=== PATIENT | female | born 1980 | race Caucasian/White ===

== ENCOUNTER 2016-04-19 18:08 | Emergency (ER) | payer MEDICAID ==
[2016-04-19 18:14] VITALS: BMI 27.1
[2016-04-19 18:15] VITALS: TEMP 97.9
[2016-04-19 18:35] LABS: AUTOMATED EOSINOPHIL 1.5 % (0-5); AUTOMATED LYMPH 32.9 % (17-44); AUTOMATED MONOCYTE 9.6 % (3-10); MPV 9.6 fL (7.4-10.4)
[2016-04-19 18:37] LABS: LEUKOCYTES/URINE NEG (NEGATIVE); NITRITE/URINE NEG (NEGATIVE); URINE OCCULT BLOOD NEG (NEG/TRACE)
[2016-04-19 18:44] LABS: BLOOD UREA NITROGEN 9 MG/DL (7-17); CALCIUM 9.2 MG/DL (8.4-10.2); CALCULATED OSMOLALITY 272 MOs/Kg (270-290); CHLORIDE 106 mEq/L (98-107); GLUCOSE 95 MG/DL (70-99); SODIUM LEVEL 142 mEq/L (137-146); TOTAL PROTEIN 7.3 G/DL (6.3-8.2)
[2016-04-19] MEDS ORDERED: ONDANSETRON HCL 4 MG/2 ML VIAL IV ONE (18:50)
[2016-04-19] MEDS ORDERED: NS 1,000 ML IV ONE (18:50)
[2016-04-19] MEDS ORDERED: MORPHINE 4 MG/ML INJECTION IV ONE (18:50)
[2016-04-19] MEDS ORDERED: Pharmacy Review for Metformin - IV Contrast Given SCH (19:00)
--- NOTE | 2016-04-19 20:11 | DIRPT ---
CLINICAL DATA: Right lower quadrant pain EXAM: CT ABDOMEN AND PELVIS WITH CONTRAST TECHNIQUE: Multidetector CT imaging of the abdomen and pelvis was performed using the standard protocol following bolus administration of intravenous contrast. CONTRAST: 80 cc Isovue COMPARISON: 12/31/2015 FINDINGS: Lung bases are unremarkable. Sagittal images of the spine are unremarkable. Again noted status postcholecystectomy. Stable intrahepatic and extrahepatic biliary ductal dilatation. No focal hepatic mass. Enhanced pancreas, spleen and adrenal glands are unremarkable. Abdominal aorta is unremarkable. No aortic aneurysm. No small bowel obstruction. No ascites or free air. No adenopathy. Enhanced kidneys are symmetrical in size. No hydronephrosis or hydroureter. Normal appendix is clearly visualized in axial image 58. No pericecal inflammation. The terminal ileum is unremarkable. The uterus is anteflexed. No adnexal masses noted. Urinary bladder is unremarkable. There is no inguinal adenopathy. No pelvic free fluid. No destructive bony lesions are noted within pelvis. IMPRESSION: 1. No acute inflammatory process within abdomen or pelvis. 2. No pericecal inflammation. Normal appendix. 3. Status postcholecystectomy. Stable biliary ductal dilatation. 4. No small bowel obstruction. 5. Unremarkable uterus. No pelvic mass. Electronically Signed By: Blake Alexander M.D. On: 04/19/2016 20:09
--- NOTE | 2016-04-19 20:19 | EDPRACDOC ---
- General Information Chief Complaint: Abdominal Pain Stated Complaint: ABDOMINAL PAIN Time Seen by Provider: 04/19/16 18:49 Information Source: Patient Mode Of Arrival: Car Home Medications: Home Medications Omeprazole 20 mg PO DAILY 01/17/14 Ondansetron [Zofran Odt] 4 mg PO Q6H PRN #20 tab.rapdis 04/19/16 Oxycodone Immediate Release [Oxycodone Immediate Release (OxyIR)] 5 mg PO Q6H PRN #20 tab 04/19/16 Allergies/Adverse Reactions: Allergies Allergy/AdvReac Type Severity Reaction Status Date / Time amoxicillin [Amoxicillin] Allergy Severe Hives* Verified 04/19/16 18:11 Penicillins Allergy Severe Hives* Verified 04/19/16 18:11 - History of Present Illness Onset: 1130, worsening HPI: PT PRESENTS WITH RLQ PAIN THAT BECAME SEVERE AT 1130 TODAY. PT DENIES NAUSEA, OR VOMITING. DENIES VAGINAL DISCHARGE OR DYSURIA Pain Location: Reports: RLQ Pain Context: Reports: Spontaneous Pain Severity: Moderate Pain Quality: Reports: Sharp, Stabbing Pain Radiation: Reports: No Radiation Last Menstrual Period: 03/26/16 : No (tubal) Adult Abdominal History: Reports: Abdominal Surgery (CHOLECYSTECOTOMY) Female Abdominal History: Denies: Abdominal Surgery, UTI, Ectopic, PID, Urolithiasis, Similar Pain (dx) Modifying Factors: improves with: Nothing Oral Intake: Normal Urinary Output: Normal ED Past Medical History - History Reviewed Yes Nurses notes reviewed and agree except as marked - Patient Medical History Cardiac History: Reports: Hypertension Psychological History: Reports: Depression Surgical History: Reports: Cholecystectomy, Other (D&C x 2) - Social Medical History Smoking Status: Never smoker EDM Review of Systems - Review of Systems ROS Negative Except as Marked: Yes All systems reviewed and were negative except as marked - Physical Exam Constitutional: Alert Oriented to: Time, Person, Place Last recorded Vital Signs: Last Vital Signs Temp 97.9 F 04/19/16 18:13 Pulse 120 H 04/19/16 18:13 Resp 20 04/19/16 18:13 BP 167/109 H 04/19/16 18:13 Pulse Ox 95 04/19/16 18:13 Oxygen Pulse Oxygen Saturation 95 O2 Device Room Air Oxygen Flow Rate Fraction of Inspired Oxygen ( FIO2) - HEENT Head: Normal ( normocephalic) Eye Exam: Normal (PERRL, EOMI, Sclera white) Oropharynx: Normal (Pharynx:Moist without exudate,Gums-no swelling) Nose: No Symptoms Reported (septum midline) Neck: Normal (FROM, trachea at midline) - Respiratory/Cardiovascular Respiratory: Normal - CTA (BBS clear to auscultation without adventitious sounds ) Cardiovascular: Tachycardia - GI Auscultation: Normal (NABS) Palpation: Normal (Soft,No rebound or guarding, non distended) Tenderness: Moderate, RLQ Slater's Sign: Negative Rectal Exam: Deferred - Musculoskeletal Back: Normal (Non-Tender) Extremities: Normal (Normal tone, Pulses 2+ No cyanosis or edema, FROM) - Integumentary Skin: Normal, Warm, Dry Lymphatics: Normal (no adenopathy) - Neurologic Memory Impaired: Normal Motor Function: Normal (Normal tone, Pulses 2+ No cyanosis or edema, FROM) Cranial Nerve: Normal (CN II-X11 intact sensation, strength 5/5) Cerebellar: Normal Mood Description: Normal Perception: Normal - Differential Diagnosis Appendicitis, Constipation, Other - Results 04/19/16 18:18 04/19/16 18:18 WBC 6.8 xk/uL (3.8-10.8) 04/19/16 18:18 RBC 5.30 xM/uL (4.20-5.40) 04/19/16 18:18 Hgb 15.8 g/dL (12.0-16.0) 04/19/16 18:18 Hct 47.4 % (36-47) H 04/19/16 18:18 MCV 89 fL (81-99) 04/19/16 18:18 MCH 29.7 pg (27-32) 04/19/16 18:18 MCHC 33.3 g/dl (33-36) 04/19/16 18:18 RDW 15.8 % (11.5-14.5) H 04/19/16 18:18 Plt Count 266 xk/uL (130-400) 04/19/16 18:18 MPV 9.6 fL (7.4-10.4) 04/19/16 18:18 Neut % (Auto) 55.0 % (45-76) 04/19/16 18:18 Lymph % (Auto) 32.9 % (17-44) 04/19/16 18:18 [place] % (Auto) 9.6 % (3-10) 04/19/16 18:18 Eos % (Auto) 1.5 % (0-5) 04/19/16 18:18 Baso % (Auto) 1.0 % (0-2) 04/19/16 18:18 Absolute Neuts (auto) 3.74 xk/uL (1.7-8.2) 04/19/16 18:18 Absolute Lymphs (auto) 2.18 xk/uL (0.65-4.75) 04/19/16 18:18 Sodium 142 mEq/L (137-146) 04/19/16 18:18 Potassium 3.5 mEq/L (3.5-5.1) 04/19/16 18:18 Chloride 106 mEq/L (98-107) 04/19/16 18:18 Carbon Dioxide 22 mMOL/L (22-33) 04/19/16 18:18 Anion Gap 18 mEq/L (8-16) H 04/19/16 18:18 BUN 9 MG/DL (7-17) 04/19/16 18:18 Creatinine 0.80 MG/DL (0.52-1.04) 04/19/16 18:18 Estimated GFR (MDRD) > 60 mL/min (>=60) 04/19/16 18:18 Glucose 95 MG/DL (70-99) 04/19/16 18:18 Calculated Osmolality 272 MOs/Kg (270-290) 04/19/16 18:18 Lactic Acid 0.8 mEq/L (0.7-2.1) 04/19/16 19:00 Calcium 9.2 MG/DL (8.4-10.2) 04/19/16 18:18 Total Bilirubin 0.4 MG/DL (0.2-1.3) 04/19/16 18:18 AST 32 IU/L (14-36) 04/19/16 18:18 ALT 52 IU/L (9-52) 04/19/16 18:18 Alkaline Phosphatase 74 IU/L (38-126) 04/19/16 18:18 Total Protein 7.3 G/DL (6.3-8.2) 01/03/17 18:18 Albumin 4.1 G/DL (3.5-5.0) 04/19/16 18:18 Urine Color Dark yellow 04/19/16 18:18 Urine Clarity Sl cldy 04/19/16 18:18 Urine pH 6.0 (5.0-8.0) 04/19/16 18:18 Ur Specific [place] 1.030 (1.003-1.035) 04/19/16 18:18 Urine Protein 1+ (NEG/TRACE) H 04/19/16 18:18 Urine Glucose (UA) Neg (NEGATIVE) 04/19/16 18:18 Urine Ketones Neg (NEGATIVE) 04/19/16 18:18 Urine Occult Blood Neg (NEG/TRACE) 04/19/16 18:18 Urine Nitrite Neg (NEGATIVE) 04/19/16 18:18 Urine Bilirubin Neg (NEGATIVE) 04/19/16 18:18 Urine Urobilinogen <2.0 MG/DL (0-1) 04/19/16 18:18 Ur Leukocyte Esterase Neg (NEGATIVE) 04/19/16 18:18 Urine RBC 2-5 (0-5) 04/19/16 18:18 Urine WBC 2-5 (0-5) 04/19/16 18:18 Ur Epithelial Cells 3+ 04/19/16 18:18 Urine Bacteria Few (NEG/FEW) 04/19/16 18:18 Urine Mucus Mod (NEG/OCC) H 04/19/16 18:18 Urine Test Neg (NEGATIVE) 04/19/16 18:18 Lab Results 04/19/16 04/19/16 04/19/16 19:00 18:18 18:18 WBC RBC Hgb Hct MCV MCH MCHC RDW Plt Count MPV Neut % (Auto) Lymph % (Auto) [place] % (Auto) Eos % (Auto) Baso % (Auto) Absolute Neuts (auto) Absolute Lymphs (auto) Sodium Potassium Chloride Carbon Dioxide Anion Gap BUN Creatinine Estimated GFR (MDRD) Glucose Calculated Osmolality Lactic Acid 0.8 Calcium Total Bilirubin AST ALT Alkaline Phosphatase Total Protein Albumin Urine Color Dark yellow Urine Clarity Sl cldy Urine pH 6.0 Ur Specific [place] 1.030 Urine Protein 1+ H Urine Glucose (UA) Neg Urine Ketones Neg Urine Occult Blood Neg Urine Nitrite Neg Urine Bilirubin Neg Urine Urobilinogen <2.0 Ur Leukocyte Esterase Neg Urine RBC 2-5 Urine WBC 2-5 Ur Epithelial Cells 3+ Urine Bacteria Few Urine Mucus Mod H Urine Test Neg 04/19/16 04/19/16 18:18 18:18 WBC 6.8 RBC 5.30 Hgb 15.8 Hct 47.4 H MCV 89 MCH 29.7 MCHC 33.3 RDW 15.8 H Plt Count 266 MPV 9.6 Neut % (Auto) 55.0 Lymph % (Auto) 32.9 [place] % (Auto) 9.6 Eos % (Auto) 1.5 Baso % (Auto) 1.0 Absolute Neuts (auto) 3.74 Absolute Lymphs (auto) 2.18 Sodium 142 Potassium 3.5 Chloride 106 Carbon Dioxide 22 Anion Gap 18 H BUN 9 Creatinine 0.80 Estimated GFR (MDRD) > 60 Glucose 95 Calculated Osmolality 272 Lactic Acid Calcium 9.2 Total Bilirubin 0.4 AST 32 ALT 52 Alkaline Phosphatase 74 Total Protein 7.3 Albumin 4.1 Urine Color Urine Clarity Urine pH Ur Specific [place] Urine Protein Urine Glucose (UA) Urine Ketones Urine Occult Blood Urine Nitrite Urine Bilirubin Urine Urobilinogen Ur Leukocyte Esterase Urine RBC Urine WBC Ur Epithelial Cells Urine Bacteria Urine Mucus Urine Test Decision Time to Discharge: 20:20 - Departure Disposition: Home Condition: Stable Final Diagnosis: Abdominal pain Instructions: Acute Abdominal Pain (ED) Education/Counseling Given To: Patient Education/Counseling Given Regarding: Diagnosis, Treatment, Prognosis, Follow Up Referrals: Dimas Ortiz II, MD [Staff Physician] - One Week Prescriptions: Ondansetron [Zofran Odt] 4 mg PO Q6H PRN #20 tab.rapdis PRN Reason: Nausea/Vomiting Oxycodone Immediate Release [Oxycodone Immediate Release (OxyIR)] 5 mg PO Q6H PRN #20 tab PRN Reason: Pain Additional Instructions: PLEASE MAKE A FOLLOW UP APPOINTMENT WITH PCP FOR NEXT WEEK. RETURN TO THE ED FOR WORSENING SYMPTOMS OR CONCERNS
[2016-04-19 20:22] LABS: ALL NEG? NO
[2016-04-19] MEDS ORDERED: OXYCODONE HCL 5 MG TABLET PO ONE (20:28)
[2016-04-19 20:31] LABS: MDMA* NEG (NEGATIVE); METHAMPHETAMINES NEG (NEGATIVE); OXYCODONE *POSITIVE* (NEGATIVE)
[2016-04-19 20:43] VITALS: BP 140/89; PULSE 103
== END 2016-04-19 20:40 | disposition home or self-care (01) ==
LOC: ED 18:08
DX: R10.9 Unspecified abdominal pain (principal)
CPT/HCPCS: 36415; 74177; 80053; 80307; 81001; 81025; 83605; 85025; 96361; 96374; 96375; 99284; A9698; J2270; J2405; J3490

== ENCOUNTER 2016-05-25 16:50 | Emergency (ER) | payer MEDICAID ==
[2016-05-25 16:57] VITALS: TEMP 97.8; BMI 26.0
[2016-05-25] MEDS ORDERED: DICYCLOMINE 10 MG CAP PO ONE (17:56)
[2016-05-25] MEDS ORDERED: IBUPROFEN 600 MG TAB PO ONE (17:56)
[2016-05-25 18:07] LABS: ALL NEG? NO
[2016-05-25 18:27] LABS: LEUKOCYTES/URINE NEG (NEGATIVE); NITRITE/URINE NEG (NEGATIVE); RBC/URINE 0-2 (0-5); URINE OCCULT BLOOD NEG (NEG/TRACE); WBC/URINE 0-2 (0-5)
[2016-05-25 18:30] LABS: MDMA* NEG (NEGATIVE); METHAMPHETAMINES NEG (NEGATIVE); OXYCODONE *POSITIVE* (NEGATIVE)
--- NOTE | 2016-05-25 18:30 | DIRPT ---
CLINICAL DATA: Abdominal pain, dizziness, vaginal burning. EXAM: ABDOMEN - 2 VIEW COMPARISON: None. FINDINGS: Overall bowel gas pattern is nonobstructive. Several nonspecific air-fluid levels within the right upper quadrant. No evidence of soft tissue mass. No evidence of free intraperitoneal air. Cholecystectomy clips in the right upper quadrant. Osseous structures are unremarkable. Lung bases are clear. IMPRESSION: Nonobstructive bowel gas pattern. Several nonspecific air-fluid levels within the right upper quadrant, of uncertain significance. Electronically Signed By: Alejandro Blackwell M.D. On: 05/25/2016 18:27
--- NOTE | 2016-05-25 18:33 | EDPRACDOC ---
- General Information Chief Complaint: Abdominal Pain Stated Complaint: MULTIPLE COMPLAINTS Time Seen by Provider: 05/25/16 17:05 Mode Of Arrival: Car Home Medications: Home Medications Omeprazole 20 mg PO DAILY 01/17/14 Dicyclomine HCl [Bentyl] 10 mg PO Q6H #28 cap 05/25/16 Meloxicam [Mobic] 7.5 mg PO BID #20 tab 05/25/16 Ondansetron HCl [Zofran] 4 mg PO Q6H PRN #20 tab 05/25/16 Allergies/Adverse Reactions: Allergies Allergy/AdvReac Type Severity Reaction Status Date / Time amoxicillin [Amoxicillin] Allergy Severe Hives* Verified 05/25/16 16:57 Penicillins Allergy Severe Hives* Verified 05/25/16 16:57 - History of Present Illness Onset: 1 DAY HPI: PT PRESENTS TODAY WITH DYSURIA AND RLQ PAIN SINCE EARLIER TODAY. PT ALSO STATES CRAFT, DIZZINESS AND NECK PAIN. PT WAS DIFFICULT TO WAKE UP. DENIES FEVER, VOMITING/DIARRHEA, CP, SHOB, VAGINAL BLEEDING/DISCHARGE. NO APPARENT DISTRESS. PMH OF CHOLECYSTECTOMY AND BTL. Pain Location: Reports: RLQ Pain Context: Reports: Spontaneous Pain Severity: Moderate Pain Quality: Reports: Cramping Pain Radiation: Reports: No Radiation Last Menstrual Period: 05/14/16 : No Control Method: Reports: BTL Adult Abdominal History: Denies: Urolithiasis Female Abdominal History: Denies: UTI, Ectopic, PID, Urolithiasis Female Associated Signs & Symptoms: Reports: Nausea, Other (CRAFT) Oral Intake: Normal Urinary Output: Normal ED Past Medical History - History Reviewed Yes Nurses notes reviewed and agree except as marked - Patient Medical History Cardiac History: Reports: Hypertension ( INDUCED) GI/ History: Denies: Urinary Tract Infection Psychological History: Reports: Depression Surgical History: Reports: Cholecystectomy, Other (D&C x 2) - Social Medical History Smoking Status: Never smoker EDM Review of Systems - Review of Systems ROS Negative Except as Marked: Yes All systems reviewed and were negative except as marked Constitutional: No Symptoms Reported Respiratory: No Symptoms Reported Cardiovascular: No Symptoms Reported Gastrointestinal: Nausea, Pain Genitourinary: Dysuria Neurological: Headache Musculoskeletal: No Symptoms Reported Integumentary: No Symptoms Reported - Physical Exam Constitutional: Alert (Awake), No apparent distress Oriented to: Time, Person, Place Last recorded Vital Signs: Last Vital Signs Temp 97.8 F 05/25/16 16:54 Pulse 86 05/25/16 18:00 Resp 18 05/25/16 18:00 BP 106/59 L 05/25/16 18:00 Pulse Ox 95 05/25/16 18:00 Oxygen Pulse Oxygen Saturation 95 O2 Device Room Air Oxygen Flow Rate Fraction of Inspired Oxygen ( FIO2) - HEENT Head: Normal Eye Exam: Normal Oropharynx: Normal Tympanic Membrane: Normal ENT EAC: Normal Nose: No Symptoms Reported Neck: Normal, Denies Pain, Midline - Respiratory/Cardiovascular Respiratory: Normal - CTA Cardiovascular: Normal - GI Auscultation: Normal Palpation: Normal Tenderness: Moderate, RLQ Slater's Sign: Negative - Musculoskeletal Back: Normal Extremities: Normal - Integumentary Skin: Normal Lymphatics: Normal - Neurologic Cerebellar: Normal Mood Description: Normal Thought: Coherent Perception: Normal - Results 05/25/16 18:54 05/25/16 18:54 WBC 9.7 xk/uL (3.8-10.8) 05/25/16 18:54 RBC 4.62 xM/uL (4.20-5.40) 05/25/16 18:54 Hgb 14.0 g/dL (12.0-16.0) 05/25/16 18:54 Hct 41.6 % (36-47) 05/25/16 18:54 MCV 90 fL (81-99) 05/25/16 18:54 MCH 30.4 pg (27-32) 05/25/16 18:54 MCHC 33.7 g/dl (33-36) 05/25/16 18:54 RDW 15.4 % (11.5-14.5) H 05/25/16 18:54 Plt Count 329 xk/uL (130-400) 05/25/16 18:54 MPV 8.8 fL (7.4-10.4) 05/25/16 18:54 Neut % (Auto) 49.5 % (45-76) 05/25/16 18:54 Lymph % (Auto) 37.8 % (17-44) 05/25/16 18:54 [place] % (Auto) 7.5 % (3-10) 05/25/16 18:54 Eos % (Auto) 3.9 % (0-5) 05/25/16 18:54 Baso % (Auto) 1.3 % (0-2) 05/25/16 18:54 Absolute Neuts (auto) 4.75 xk/uL (1.7-8.2) 05/25/16 18:54 Absolute Lymphs (auto) 3.59 xk/uL (0.65-4.75) 05/25/16 18:54 Sodium 139 mEq/L (137-146) 05/25/16 18:54 Potassium 3.5 mEq/L (3.5-5.1) 05/25/16 18:54 Chloride 105 mEq/L (98-107) 05/25/16 18:54 Carbon Dioxide 28 mMOL/L (22-33) 05/25/16 18:54 Anion Gap 10 mEq/L (8-16) 05/25/16 18:54 BUN 11 MG/DL (7-17) 05/25/16 18:54 Creatinine 0.80 MG/DL (0.52-1.04) 05/25/16 18:54 Estimated GFR (MDRD) > 60 mL/min (>=60) 05/25/16 18:54 Glucose 106 mg/dL (70-99) H 05/25/16 18:54 Calculated Osmolality 267 MOs/Kg (270-290) L 05/25/16 18:54 Calcium 9.3 MG/DL (8.4-10.2) 05/25/16 18:54 Corrected Calcium 9.9 MG/DL (8.4-10.2) 05/25/16 18:54 Total Bilirubin 0.4 MG/DL (0.2-1.3) 05/25/16 18:54 AST 21 IU/L (14-36) 05/25/16 18:54 ALT 33 IU/L (9-52) 05/25/16 18:54 Alkaline Phosphatase 51 IU/L (38-126) 05/25/16 18:54 Total Protein 6.0 G/DL (6.3-8.2) L 05/25/16 18:54 Albumin 3.4 G/DL (3.5-5.0) L 05/25/16 18:54 Urine Color Yellow 05/25/16 17:30 Urine Clarity Clear 05/25/16 17:30 Urine pH 5.0 (5.0-8.0) 05/25/16 17:30 Ur Specific [place] 1.030 (1.003-1.035) 05/25/16 17:30 Urine Protein Neg (NEG/TRACE) 05/25/16 17:30 Urine Glucose (UA) Neg (NEGATIVE) 05/25/16 17:30 Urine Ketones Neg (NEGATIVE) 05/25/16 17:30 Urine Occult Blood Neg (NEG/TRACE) 05/25/16 17:30 Urine Nitrite Neg (NEGATIVE) 05/25/16 17:30 Urine Bilirubin Neg (NEGATIVE) 05/25/16 17:30 Urine Urobilinogen <2.0 MG/DL (0-1) 05/25/16 17:30 Ur Leukocyte Esterase Neg (NEGATIVE) 05/25/16 17:30 Urine RBC 0-2 (0-5) 05/25/16 17:30 Urine WBC 0-2 (0-5) 05/25/16 17:30 Ur Epithelial Cells Occ 05/25/16 17:30 Urine Mucus Mod (NEG/OCC) H 05/25/16 17:30 Urine Opiates Screen *positive* (NEGATIVE) H 05/25/16 17:30 Ur Oxycodone Screen *positive* (NEGATIVE) H 05/25/16 17:30 Urine Methadone Screen *positive* (NEGATIVE) H 05/25/16 17:30 Ur Barbiturates Screen Neg (NEGATIVE) 05/25/16 17:30 Ur Tricyclics Screen Neg (NEGATIVE) 05/25/16 17:30 Ur Phencyclidine Scrn Neg (NEGATIVE) 05/25/16 17:30 Ur Amphetamines Screen Neg (NEGATIVE) 05/25/16 17:30 U Methamphetamines Scrn Neg (NEGATIVE) 05/25/16 17:30 Urine MDMA Screen Neg (NEGATIVE) 05/25/16 17:30 U Benzodiazepines Scrn *positive* (NEGATIVE) H 05/25/16 17:30 Urine Cocaine Screen Neg (NEGATIVE) 05/25/16 17:30 Ur THC Screen *positive* (NEGATIVE) H 05/25/16 17:30 Lab Results 05/25/16 05/25/16 05/25/16 18:54 18:54 17:30 WBC 9.7 RBC 4.62 Hgb 14.0 Hct 41.6 MCV 90 MCH 30.4 MCHC 33.7 RDW 15.4 H Plt Count 329 MPV 8.8 Neut % (Auto) 49.5 Lymph % (Auto) 37.8 [place] % (Auto) 7.5 Eos % (Auto) 3.9 Baso % (Auto) 1.3 Absolute Neuts (auto) 4.75 Absolute Lymphs (auto) 3.59 Sodium 139 Potassium 3.5 Chloride 105 Carbon Dioxide 28 Anion Gap 10 BUN 11 Creatinine 0.80 Estimated GFR (MDRD) > 60 Glucose 106 H Calculated Osmolality 267 L Calcium 9.3 Corrected Calcium 9.9 Total Bilirubin 0.4 AST 21 ALT 33 Alkaline Phosphatase 51 Total Protein 6.0 L Albumin 3.4 L Urine Color Urine Clarity Urine pH Ur Specific [place] Urine Protein Urine Glucose (UA) Urine Ketones Urine Occult Blood Urine Nitrite Urine Bilirubin Urine Urobilinogen Ur Leukocyte Esterase Urine RBC Urine WBC Ur Epithelial Cells Urine Mucus Urine Opiates Screen *positive* H Ur Oxycodone Screen *positive* H Urine Methadone Screen *positive* H Ur Barbiturates Screen Neg Ur Tricyclics Screen Neg Ur Phencyclidine Scrn Neg Ur Amphetamines Screen Neg U Methamphetamines Scrn Neg Urine MDMA Screen Neg U Benzodiazepines Scrn *positive* H Urine Cocaine Screen Neg Ur THC Screen *positive* H 05/25/16 17:30 WBC RBC Hgb Hct MCV MCH MCHC RDW Plt Count MPV Neut % (Auto) Lymph % (Auto) [place] % (Auto) Eos % (Auto) Baso % (Auto) Absolute Neuts (auto) Absolute Lymphs (auto) Sodium Potassium Chloride Carbon Dioxide Anion Gap BUN Creatinine Estimated GFR (MDRD) Glucose Calculated Osmolality Calcium Corrected Calcium Total Bilirubin AST ALT Alkaline Phosphatase Total Protein Albumin Urine Color Yellow Urine Clarity Clear Urine pH 5.0 Ur Specific [place] 1.030 Urine Protein Neg Urine Glucose (UA) Neg Urine Ketones Neg Urine Occult Blood Neg Urine Nitrite Neg Urine Bilirubin Neg Urine Urobilinogen <2.0 Ur Leukocyte Esterase Neg Urine RBC 0-2 Urine WBC 0-2 Ur Epithelial Cells Occ Urine Mucus Mod H Urine Opiates Screen Ur Oxycodone Screen Urine Methadone Screen Ur Barbiturates Screen Ur Tricyclics Screen Ur Phencyclidine Scrn Ur Amphetamines Screen U Methamphetamines Scrn Urine MDMA Screen U Benzodiazepines Scrn Urine Cocaine Screen Ur THC Screen - Additional Information PT SLEEPING HER ENTIRE STAY; OFTEN WAKES UP AND ASKS FOR PAIN MEDICINE. CT ABDOMEN DONE JUST OVER A MONTH AGO FOR SAME COMPLAINT AND EVALUATION WAS UNREMARKABLE. ON PTS DISCHARGE, I COULD BARELY WAKE HER. PT MUMBLES INCOHERENTLY. Decision Time to Discharge: 19:32 - Departure Disposition: Home Condition: Good Final Diagnosis: Abdominal pain, Polysubstance abuse Instructions: Acute Abdominal Pain (ED) Education/Counseling Given To: Patient Education/Counseling Given Regarding: Diagnosis, Treatment, Follow Up Referrals: Estrada Mitchell MD [Primary Care Provider] - One Week [facility] [NonStaff] - One Week Zhen Coats MD [Staff Provider No Admit] - One Week Prescriptions: New Dicyclomine HCl [Bentyl] 10 mg PO Q6H #28 cap Meloxicam [Mobic] 7.5 mg PO BID #20 tab Ondansetron HCl [Zofran] 4 mg PO Q6H PRN #20 tab PRN Reason: Nausea/Vomiting No Action Omeprazole 20 mg PO DAILY Additional Instructions: BRAT DIET. IF SYMPTOMS PERSIST, PLEASE FOLLOW UP WITH GASTROENTEROLOGY.
[2016-05-25 19:02] LABS: AUTOMATED BASOPHIL 1.3 % (0-2); AUTOMATED EOSINOPHIL 3.9 % (0-5); AUTOMATED LYMPH 37.8 % (17-44); AUTOMATED MONOCYTE 7.5 % (3-10); AUTOMATED NEUTROPHIL 49.5 % (45-76); MPV 8.8 fL (7.4-10.4)
[2016-05-25 19:19] LABS: BLOOD UREA NITROGEN 11 MG/DL (7-17); CALC CORRECTED 9.9 MG/DL (8.4-10.2); CALCIUM 9.3 MG/DL (8.4-10.2); CALCULATED OSMOLALITY 267 MOs/Kg (270-290); CHLORIDE 105 mEq/L (98-107); GLUCOSE 106 mg/dL (70-99); SODIUM LEVEL 139 mEq/L (137-146)
[2016-05-25 20:11] VITALS: BP 104/59; PULSE 84
== END 2016-05-25 20:11 | disposition home or self-care (01) ==
LOC: ED 16:50
DX: R10.9 Unspecified abdominal pain (principal); F19.10 Other psychoactive substance abuse, uncomplicated
CPT/HCPCS: 36415; 74020; 80053; 80307; 81001; 85025; 99284; J3490